=== PATIENT | male | born 1995 | race Caucasian/White ===

== ENCOUNTER 2017-06-19 02:24 | Emergency (ER) | payer SELFPAY ==
[~2017-06-19] VITALS: Ht 165.1 cm; Wt 70.0 kg
[2017-06-19 02:27] VITALS: BP 145/76
== END 2017-06-19 03:37 | disposition left against medical advice (07) ==
LOC: ER 02:24
DX: Z53.21 Procedure and treatment not carried out due to patient leaving prior to being seen by health care provider (principal)